=== PATIENT | male | born 1990 ===

== ENCOUNTER 2017-01-10 18:58 | Emergency (ER) | payer SELFPAY ==
[2017-01-10 19:11] VITALS: BP 146/84; PULSE 62; RESP 20; TEMP 97.6; O2SAT 100
[2017-01-10] MEDS ORDERED: Bacitracin 500 Units/gm Oint Foilpak UD TOP ONE (19:37)
--- NOTE | 2017-01-10 19:52 | C.PDOC ---
History Of Present Illness 26 y/o male presents to ED with complaints of right knee pain developed after he fell while playing football [employer]. At ED patient is ambulatory, pain worse with bending. Patient denies loc, head injury, change in sensation, back pain or any other complaints at this time. Time Seen by Provider: 01/10/17 19:14 Chief Complaint (Nursing): Lower Extremity Problem/Injury History Per: Patient History/Exam Limitations: no limitations Onset/Duration Of Symptoms: Hrs Current Symptoms Are (Timing): Still Present Past Medical History Reviewed: Historical Data, Nursing Documentation, Vital Signs Vital Signs: Last Vital Signs Temp 97.6 F 01/10/17 19:07 Pulse 62 01/10/17 19:07 Resp 20 01/10/17 20:33 BP 146/84 01/10/17 19:07 Pulse Ox 100 01/10/17 20:07 - Medical History PMH: No Chronic Diseases Surgical History: No Surg Hx Family History: States: No Known Family Hx - Social History Hx Alcohol Use: No Hx Substance Use: No - Immunization History Hx Tetanus Toxoid Vaccination: No Hx Influenza Vaccination: No Hx Pneumococcal Vaccination: No Review Of Systems Eyes: Negative for: Vision Change Musculoskeletal: Positive for: Leg Pain. Negative for: Back Pain, Foot Pain Skin: Negative for: Rash Neurological: Negative for: Weakness, Numbness Physical Exam - Physical Exam Appears: Non-toxic, No Acute Distress Skin: Warm, Dry, No Rash, Other (superficial abrasion to right knee) Head: Atraumatic, Normacephalic Eye(s): bilateral: Normal Inspection, EOMI Nose: Normal Oral Mucosa: Moist Neck: Normal ROM, Supple Chest: Symmetrical Respiratory: No Accessory Muscle Use Extremity: Normal ROM, Tenderness (to lateral aspect of right knee), No Calf Tenderness, Capillary Refill, No Deformity, No Swelling Pulses: Left Dorsalis Pedis: Normal, Right Dorsalis Pedis: Normal Neurological/Psych: Oriented x3, Normal Motor, Normal Sensation ED Course And Treatment O2 Sat by Pulse Oximetry: 100 (RA) Pulse Ox Interpretation: Normal - Other Rad Right Knee XR X-Ray: Interpreted by Me, Viewed By Me Interpretation: no fx or dislocation Progress Note: Wound cleansed and dressed by RN. Knee brace applied by certified mortician. Instructed to follow up with ortho in 1-2 days. Disposition - Disposition Referrals: To Palmer MD [Staff Provider] - Disposition: HOME/ ROUTINE Disposition Time: 20:05 Condition: STABLE Additional Instructions: Vaya a bryan mdico o la clnica en 1-3 dailey sin falta, para mas evaluacin. [facility] los medicamentos wayne indicado. Volver a la maren de emergencia en cualquier momento si los sntomas persisten o empeoran. Prescriptions: Naproxen [Naprosyn] 1 tab PO BID PRN #20 tab PRN Reason: Pain Instructions: Knee Pain (ED) Forms: [employer] (Latvian), Work Excuse Print Language: MICRONESIAN - Clinical Impression Clinical Impression: Knee strain - PA / P[employer] / Resident Statement MD/DO has reviewed & agrees with the documentation as recorded. - Scribe Statement The provider has reviewed the documentation as recorded by the Scribe Sana Leo All medical record entries made by the Scribe were at my direction and personally dictated by me. I have reviewed the chart and agree that the record accurately reflects my personal performance of the history, physical exam, medical decision making, and the department course for this patient. I have also personally directed, reviewed, and agree with the discharge instructions and disposition.
[2017-01-10] MEDS ORDERED: Bacitracin 500 Units/gm Oint Foilpak UD ONE ×2 (19:54→20:07)
--- NOTE | 2017-01-11 10:23 | RAD ---
PROCEDURE: Right Knee Radiographs. HISTORY: trauma COMPARISON: None. FINDINGS: BONES: Normal. No fracture. JOINTS: Normal. No osteoarthritis. JOINT EFFUSION: None. OTHER FINDINGS: None. IMPRESSION: Normal radiographs of the right knee.
== END 2017-01-10 20:33 | disposition home or self-care (01) ==
LOC: C.ER 18:58
DX: S86.911A Strain of unspecified muscle(s) and tendon(s) at lower leg level, right leg, initial encounter (principal); W18.30XA Fall on same level, unspecified, initial encounter; Y93.61 Activity, american tackle football